=== PATIENT | female | born 1995 | race Caucasian/White ===

== ENCOUNTER 2022-08-22 04:00 | Inpatient (IN) | payer BC ==
[~2022-08-22] VITALS: Ht 165.5 cm; Wt 79.4 kg
[2022-08-22] VITALS (50 sets, daily range): BP systolic 97–152; BP diastolic 54–89
[2022-08-22] MEDS ORDERED: D5 LR IV SOLUTION 1,000 ML IV SCH (05:15)
[2022-08-22] MEDS ORDERED: LACTATED RINGERS 1,000 ML IV ONE (05:15)
[2022-08-22] MEDS ORDERED: MINERAL OIL 30 ML UDC TOP PRN (05:15)
[2022-08-22 05:23] LABS: BILIRUBIN,URINE NEGATIVE (NEGATIVE); CLARITY,URINE SL CLOUDY; COLOR,URINE YELLOW; GLUCOSE, URINE (UA) NEGATIVE (NEGATIVE); KETONES,URINE NEGATIVE (NEGATIVE); LEUKOCYTE ESTERASE ,URINE NEGATIVE (NEGATIVE); NITRITE,URINE NEGATIVE (NEGATIVE); PROTEIN,URINE NEGATIVE (NEGATIVE)
[2022-08-22 05:30] LABS: BASOPHILS % (AUTO) 0 % (0-10); EOSINOPHILS # (AUTO) 0.1 10^3/uL (0.0-0.3); EOSINOPHILS % (AUTO) 1 % (0-10); HEMATOCRIT 39 % (35-52); HEMOGLOBIN 13.5 g/dL (11.5-16.0); LYMPHOCYTES # (AUTO) 2.4 10^3/uL (1.0-4.0); LYMPHOCYTES % (AUTO) 17 % (12-44); MEAN CORPUSCULAR HEMOGLOBIN 33 pg (25-34); MEAN CORPUSCULAR HGB CONC 35 g/dL (32-36); MEAN CORPUSCULAR VOLUME 95 fL (80-99); MEAN PLATELET VOLUME 9.5 fL (9.0-12.2); MONOCYTES # (AUTO) 0.9 10^3/uL (0.0-1.0); MONOCYTES % (AUTO) 6 % (0-12); NEUTROPHILS # (AUTO) 10.6 10^3/uL (1.8-7.8); NEUTROPHILS % (AUTO) 75 % (42-75); PLATELET COUNT 253 10^3/uL (130-400); WHITE BLOOD COUNT 14.1 10^3/uL (4.3-11.0)
[2022-08-22 05:51] LABS: AMORPHOUS SEDIMENT,UR MOD AMOR URATES /LPF; BACTERIA,URINE NEGATIVE /HPF; SQUAMOUS EPITHELIAL CELL,UR 0-2 /HPF
[2022-08-22] MEDS ORDERED: CATHETER FLUSH 10 ML SYR IV SCH ×2 (06:00→14:00)
[2022-08-22] MEDS ORDERED: fentaNYL 2 mcg/ml BUPIVA 0.125 100 ML ONE (06:45)
[2022-08-22] MEDS ORDERED: fentaNYL INJ 100 MCG/2 ML AMP ONE (06:46)
[2022-08-22] MEDS ORDERED: BUPIVACAINE 0.25% 10 ML (SENSORCAINE) VIAL ONE (06:46)
--- NOTE | 2022-08-22 06:55 | History & Physical-OB ---
OB - Chief Complaint & HPI Date/Time Date of Admission: Date of Admission: Aug 22, 2022 at 05:12 Date seen by a Provider: Aug 22, 2022 Time Seen by a Provider: 08:45 Chief Complaint/History OB-Reason for Admission/Chief: Onset of Labor Hx : 1 Hx Para: 0 Expected Date of Delivery: Aug 18, 2022 Gestational Age in Weeks: 40 Gestational Age in Days: 4 History of Labs A+, antibody neg, RNI, HIV/HepB/RPR NR. GC/chlamydia neg. Glucola neg. GBS neg. Allergies and Home Medications Allergies Coded Allergies: No Known Drug Allergies (Unverified , 08/22/22) Patient Home Medication List Home Medication List Reviewed: Yes Pnv95/Ferrous Fumarate/FA ( Vitamin Tablet) 28 Mg Iron-800 Mcg Tablet, 1 EACH PO DAILY, (Reported) Entered as Reported by: RAUDEL PERALES on 08/22/22 0903 Last Action: New Order OB - History Hx of Present Care: Yes Ultrasounds: Normal mid trimester US Obstetrical Complications: None Information Induced Hypertension: No Maternal Gestational Diabetes: No Hemorrhage: No Patient Past Medical History PMHx: Denies SurgHx: Denies Social History/Family History Alcohol Use: Denies Use Recreational Drug Use: Yes (history of THC prior to ) Smoking Cessation: Never smoker Immunizations Influenza Vaccine Up-to-Date: Yes; Up-to-Date (04/13/22) Tetanus Booster (TDap): Less than 5yrs (06/21/22) Rubella: not immune RPR/VDRL: Negative GBS Status: Negative OB - Admission Exam Physical Exam Vitals: Vital Signs 08/22/22 04:11 Temp 36.9 Pulse 102 Resp 18 Pulse Ox 98 O2 Delivery Room Air HEENT: NCAT Extremities: Normal Cervical Dilatation: 6cm Effacement: Other (90) Station: -1 Membranes: Ruptured (AROM at time of exam with blood stained fluid return) Amniotic Fluid: Clear Heart Rate: 130's Accelerations: Accelerations Present Decelerations: No Decelerations Short Term Variability: Present Custodial Variability: Average (6-25) Contractions on Admission: < 5 Minutes Apart Labs Laboratory Tests Test 08/22/22 04:02 08/22/22 05:10 Range/Units Urine Color YELLOW Urine Clarity SL CLOUDY Urine pH 7.0 5-9 Urine Specific [place] 1.015 L 1.016-1.022 Urine Protein NEGATIVE NEGATIVE Urine Glucose (UA) NEGATIVE NEGATIVE Urine Ketones NEGATIVE NEGATIVE Urine Nitrite NEGATIVE NEGATIVE Urine Bilirubin NEGATIVE NEGATIVE Urine Urobilinogen 0.2 < = 1.0 MG/DL Urine Leukocyte Esterase NEGATIVE NEGATIVE Urine RBC (Auto) TRACE-I H NEGATIVE Urine RBC NONE /HPF Urine WBC NONE /HPF Urine Squamous Epithelial Cells 0-2 /HPF Urine Crystals PRESENT H /LPF Urine Amorphous Sediment MOD TIN URATES H /LPF Urine Bacteria NEGATIVE /HPF Urine Casts NONE /LPF Urine Mucus SMALL H /LPF Urine Culture Indicated NO White Blood Count 14.1 H 4.3-11.0 10^3/uL Red Blood Count 4.07 3.80-5.11 10^6/uL Hemoglobin 13.5 11.5-16.0 g/dL Hematocrit 39 35-52 % Mean Corpuscular Volume 95 80-99 fL Mean Corpuscular Hemoglobin 33 25-34 pg Mean Corpuscular Hemoglobin Concent 35 32-36 g/dL Red Cell Distribution Width 12.7 10.0-14.5 % Platelet Count 253 130-400 10^3/uL Mean Platelet Volume 9.5 9.0-12.2 fL Immature Granulocyte % (Auto) 1 % Neutrophils (%) (Auto) 75 42-75 % Lymphocytes (%) (Auto) 17 12-44 % Monocytes (%) (Auto) 6 0-12 % Eosinophils (%) (Auto) 1 0-10 % Basophils (%) (Auto) 0 0-10 % Neutrophils # (Auto) 10.6 H 1.8-7.8 10^3/uL Lymphocytes # (Auto) 2.4 1.0-4.0 10^3/uL Monocytes # (Auto) 0.9 0.0-1.0 10^3/uL Eosinophils # (Auto) 0.1 0.0-0.3 10^3/uL Basophils # (Auto) 0.0 0.0-0.1 10^3/uL Immature Granulocyte # (Auto) 0.1 0.0-0.1 10^3/uL OB - Assessment/Plan/Diagnosis Assessment Assessment: active labor Admission Dx Active labor 40 weeks gestation A+ GBS neg Rubella non-immune Admission Status: Inpatient Order (span 2 midnights) Reason for Inpatient Admission: Labor, delivery and course Plan Other Plan Progressing through labor spontaneously, discussed AROM versus continued expectant management and patient preferred AROM, done at time of exam. Anticipate vaginal delivery. RAUDEL PERALES MD Aug 22, 2022 06:55
[2022-08-22] MEDS ORDERED: diphenhydrAMINE 50 MG/ML INJ (BENADRYL) IV PRN (07:30)
[2022-08-22] MEDS ORDERED: NALOXONE 0.4 MG/ML 1 ML (NARCAN) VIAL IV PRN (07:30)
[2022-08-22] MEDS ORDERED: ONDANSETRON 4 MG/2 ML (SDV) Z0FRAN IV PRN (07:30)
[2022-08-22] MEDS ORDERED: LACTATED RINGERS 1,000 ML IV SCH (07:30)
[2022-08-22] MEDS ORDERED: fentaNYL 2 mcg/ml BUPIVA 0.125 100 ML EPI SCH (07:30)
[2022-08-22] MEDS ORDERED: PNV91TAB6 PO (09:03)
[2022-08-22] MEDS ORDERED: OXYTOCIN PRE-MIX DRIP 500 ML IV ONE ×2 (10:27→12:43)
[2022-08-22] MEDS ORDERED: BENZOCAINE/MENTHOL (DERMOPLAST) 56 ML CAN TP ONE (10:27)
[2022-08-22] MEDS ORDERED: LIDOCAINE/EPI 2% 1:200,00 (XYLOCAINE) 20 ML VIAL ONE (10:29)
[2022-08-22] MEDS: OXYTOCIN PRE-MIX DRIP 500 ML IV SCH ×2 (11:56→13:00)
--- NOTE | 2022-08-22 12:43 | OB Labor & Delivery Record ---
Vag Delivery Note Vag Delivery Note Date of Delivery: 08/22/22 Preoperative Diagnosis: Shayna Varner is a (26 /Para 1 / 0,Gestational Age (wks)40with 4 days Postoperative Diagnosis: Same Surgeon: RAUDEL PERALES Anesthesia: Epidural Delivery Type: Findings: Viable female infant, apgars 8/9, weight 8#4 Lacerations: second degree perineal, left periurethral Intact placenta with 3 vessel cord. Nuchal cord x 1 reduced, no body cord or shoulder dystocia Estimated Blood Loss: 400 ml Complications: None Condition: Stable Description of Procedure: The patient is a 26 year old female who presented in active labor. She was admitted and informed consent was obtained. Her labor course was unremarkable. She progressed to complete dilatation and began to push. She was then set up for delivery. The infant's head was delivered atraumatically in the JULIÁN position. The shoulders and remainder of the 's body were then delivered without difficulty. Upon delivery, the was vigorous and placed on maternal chest and the mouth and nares were bulb suctioned. After a delay cord was doubly clamped and cut and the infant remained on maternal chest. An intact placenta with 3-vessel cord delivered via Fiona and there was found to be minimal bleeding.~ Vigorous fundal massage was performed and the fundus was found to be firm. IV oxytocin was given. Examination of the vagina and perineum revealed a second degree and left periurethral lacerations repaired in the usual fashion with 3-0 vicryl rapide suture. Following the repair, sponge, instrument and needle counts were correct. Mom and baby were both in stable condition in the labor suite. Vitals - Labs Vital Signs - I&O Vital Signs Date Time Temp Pulse Resp B/P (MAP) Pulse Ox O2 Delivery O2 Flow Rate FiO2 08/22/22 07:16 95 20 109/67 (81) 98 Room Air 08/22/22 07:13 89 108/63 (78) Room Air 08/22/22 07:10 91 122/72 (89) 100 Room Air 08/22/22 07:07 97 119/72 (88) 08/22/22 07:04 94 124/76 (92) 98 Room Air 08/22/22 07:01 97 120/75 (90) 99 Room Air 08/22/22 06:58 117 116/75 (89) 08/22/22 06:55 95 18 117/71 (86) 100 Room Air 08/22/22 05:35 36.1 08/22/22 04:11 36.9 102 18 98 Room Air Labs Laboratory Tests 08/22/22 04:02: Urine Color YELLOW, Urine Clarity SL CLOUDY, Urine pH 7.0, Urine Specific [place] 1.015L, Urine Protein NEGATIVE, Urine Glucose (UA) NEGATIVE, Urine Ketones NEGATIVE, Urine Nitrite NEGATIVE, Urine Bilirubin NEGATIVE, Urine Urobilinogen 0.2, Urine Leukocyte Esterase NEGATIVE, Urine RBC (Auto) TRACE-IH, Urine RBC NONE, Urine WBC NONE, Urine Squamous Epithelial Cells 0-2, Urine Crystals PRESENTH, Urine Amorphous Sediment MOD TIN URATESH, Urine Bacteria NE GATIVE, Urine Casts NONE, Urine Mucus SMALLH, Urine Culture Indicated NO 08/22/22 05:10: White Blood Count 14.1H, Red Blood Count 4.07, Hemoglobin 13.5, Hematocrit 39, Mean Corpuscular Volume 95, Mean Corpuscular Hemoglobin 33, Mean Corpuscular Hemoglobin Concent 35, Red Cell Distribution Width 12.7, Platelet Count 253, Mean Platelet Volume 9.5, Immature Granulocyte % (Auto) 1, Neutrophils (%) (Auto) 75, Lymphocytes (%) (Auto) 17, Monocytes (%) (Auto) 6, Eosinophils (%) (Auto) 1, Basophils (%) (Auto) 0, Neutrophils # (Auto) 10.6H, Lymphocytes # (Auto) 2.4, Monocytes # (Auto) 0.9, Eosinophils # (Auto) 0.1, Basophils # (Auto) 0.0, Immature Granulocyte # (Auto) 0.1 RAUDEL PERALES MD Aug 22, 2022 12:43
[2022-08-22] MEDS ORDERED: WITCH HAZEL(TUCKS) 40 EA JAR TOP PRN (12:45)
[2022-08-22] MEDS ORDERED: BENZOCAINE/MENTHOL (DERMOPLAST) 56 ML CAN TP PRN (12:45)
[2022-08-22] MEDS ORDERED: ACETAMINOPHEN 500 MG TAB (TYLENOL) PO PRN (12:45)
[2022-08-22] MEDS ORDERED: LIDOCAINE/EPI 2% 1:200,00 (XYLOCAINE) 10 ML VIAL INJ ONE (14:00)
[2022-08-22] MEDS: IBUPROFEN 600 MG (MOTRIN) TAB PO SCH ×2 (16:31→22:22)
[2022-08-22] MEDS: DOCUSATE SODIUM 100 MG (COLACE) CAP PO SCH (21:46)
[2022-08-23] MEDS: IBUPROFEN 600 MG (MOTRIN) TAB PO SCH (04:22)
[2022-08-23 04:28] VITALS: BP 112/76
[2022-08-23 06:00] LABS: BASOPHILS % (AUTO) 0 % (0-10); EOSINOPHILS # (AUTO) 0.1 10^3/uL (0.0-0.3); EOSINOPHILS % (AUTO) 1 % (0-10); HEMATOCRIT 31 % (35-52); HEMOGLOBIN 10.6 g/dL (11.5-16.0); LYMPHOCYTES # (AUTO) 2.8 10^3/uL (1.0-4.0); LYMPHOCYTES % (AUTO) 20 % (12-44); MEAN CORPUSCULAR HEMOGLOBIN 33 pg (25-34); MEAN CORPUSCULAR HGB CONC 35 g/dL (32-36); MEAN CORPUSCULAR VOLUME 96 fL (80-99); MEAN PLATELET VOLUME 9.8 fL (9.0-12.2); MONOCYTES # (AUTO) 0.9 10^3/uL (0.0-1.0); MONOCYTES % (AUTO) 6 % (0-12); NEUTROPHILS # (AUTO) 9.9 10^3/uL (1.8-7.8); NEUTROPHILS % (AUTO) 72 % (42-75); PLATELET COUNT 242 10^3/uL (130-400); WHITE BLOOD COUNT 13.8 10^3/uL (4.3-11.0)
[2022-08-23] MEDS ORDERED: PRENATAL VITAMIN 1 EA TAB PO SCH (07:00)
[2022-08-23] MEDS ORDERED: IBUP-844 PO (07:22)
[2022-08-23] MEDS ORDERED: DOCU100C37 PO (07:22)
[2022-08-23] MEDS ORDERED: FERR325T5 PO (07:22)
[2022-08-23 07:48] VITALS: BP 107/66
--- NOTE | 2022-08-23 08:51 | Anesthesia-Regional Post-Op ---
Regional Patient Condition Mental Status: Alert, Oriented x3 Circulation: Same as Pre-Op Headache: Absent Sensation: Full Recovery Motor Block: Absent Post Op Complications Complications None Follow Up Care/Instructions Patient Instructions None needed. Anesthesia/Patient Condition Patient is doing well, no complaints, stable vital signs, no apparent adverse anesthesia problems. No complications reported per nursing. D/C home per [facility] [place] Criteria: Yes RHIANNON PENALOZA CRNA Aug 23, 2022 08:51
[2022-08-23] MEDS ORDERED: MEASLES,MUMPS,RUBELLA 1 EA INJ SC ONE (09:00)
[2022-08-23] MEDS: DOCUSATE SODIUM 100 MG (COLACE) CAP PO SCH (09:50)
[2022-08-23 09:51] VITALS: BP 112/69
--- NOTE | 2022-08-23 09:52 | Postpartum Progress Note ---
Note Note Day # [] Subjective: Patient is without complaints. Ambulating, voiding. Tolerating a regular diet without nausea or vomiting. Normal lochia. Pain is well controlled with oral pain medications. [] feeding. [] Objective: [] Physical Exam: General - Alert and oriented, no apparent distress Abdomen - Soft, appropriately tender to palpation, non-distended, fundus firm at umbilicus Extremities - no edema, negative Benji's bilaterally Assessment: [] post- day # [], status post [] vaginal delivery. Recovering well, hemodynamically stable Plan: Routine care. Encourage breast feeding. Encourage ambulation. Ferrous sulfate supplementation. Plan for discharge [] Vitals - Labs Vital Signs - I&O Vital Signs Date Time Temp Pulse Resp B/P (MAP) Pulse Ox O2 Delivery O2 Flow Rate FiO2 08/23/22 09:51 36.7 84 16 112/69 (83) 97 Room Air 08/23/22 07:48 36.9 104 16 107/66 (80) 98 Room Air 08/23/22 04:28 36.7 94 16 112/76 (88) 99 Room Air 08/22/22 20:45 36.7 95 18 108/61 (77) 99 Room Air 08/22/22 16:33 36.8 91 20 115/78 (90) 100 Room Air 08/22/22 14:34 90 20 110/65 (80) Room Air 08/22/22 14:19 112 20 105/61 (76) Room Air 08/22/22 14:04 93 20 99/57 (71) Room Air 08/22/22 13:49 86 20 106/60 (75) Room Air 08/22/22 13:34 91 20 97/54 (68) Room Air 08/22/22 13:19 86 20 100/65 (77) Room Air 08/22/22 13:04 104 20 106/70 (82) Room Air 08/22/22 12:49 96 20 101/61 (74) Room Air 08/22/22 12:30 107 20 110/55 (73) Room Air 08/22/22 12:21 94 20 146/60 (88) Room Air 08/22/22 12:20 94 20 146/60 (88) 100 Room Air 08/22/22 12:15 93 20 131/66 (87) 100 Room Air 08/22/22 12:00 101 20 131/71 (91) 100 Room Air 08/22/22 11:45 78 20 100 Non Rebreather 10.00 08/22/22 11:30 93 20 152/65 (94) 99 Non Rebreather 10.00 08/22/22 11:15 87 20 99 Room Air 08/22/22 11:00 88 20 129/78 (95) 96 Room Air 08/22/22 10:45 82 20 126/79 (95) 98 Room Air 08/22/22 10:30 86 20 112/79 (90) 98 Room Air 08/22/22 10:15 95 20 125/89 (101) 100 Room Air 08/22/22 10:00 93 20 116/73 (87) 100 Room Air I & O 08/23/22 07:00 Intake Total 3060 ml Balance 3060 ml Labs Laboratory Tests 08/23/22 05:02: White Blood Count 13.8H, Red Blood Count 3.21L, Hemoglobin 10.6#L, Hematocrit 31L, Mean Corpuscular Volume 96, Mean Corpuscular Hemoglobin 33, Mean Corpuscular Hemoglobin Concent 35, Red Cell Distribution Width 12.9, Platelet Count 242, Mean Platelet Volume 9.8, Immature Granulocyte % (Auto) 1, Neutrophils (%) (Auto) 72, Lymphocytes (%) (Auto) 20, Monocytes (%) (Auto) 6, Eosinophils (%) (Auto) 1, Basophils (%) (Auto) 0, Neutrophils # (Auto) 9.9H, Lymphocytes # (Auto) 2.8, Monocytes # (Auto) 0.9, Eosinophils # (Auto) 0.1, Basophils # (Auto) 0.0, Immature Granulocyte # (Auto) 0.1 RAUDEL PERALES MD Aug 23, 2022 09:52
[2022-08-23] MEDS ORDERED: IBUPROFEN 600 MG (MOTRIN) TAB PO SCH (10:00)
[2022-08-23 11:51] VITALS: BP 116/58
[2022-08-23] MEDS ORDERED: MEASLES,MUMPS,RUBELLA 1 EA INJ ONE (14:59)
[2022-08-23 15:36] VITALS: BP 116/58
--- NOTE | 2022-08-23 16:59 | Discharge Summary ---
Discharge Summary Hospital Course Hospital Course Date of Admission: Aug 22, 2022 at 05:12 Admission Diagnosis : Family Physician/Provider: Date of Discharge: 08/23/22 Discharge Diagnosis: s/p spontaneous vaginal delivery with second degree perineal laceration repair Asymptomatic acute blood loss anemia Hospital Course: 26 yo G1 now P1 admitted in active labor at 40w4d, had uncomplicated with second degree perineal lac and left periurethral lac repair. uncomplicated, started iron for mild asymptomatic anemia. Labs and Pending Lab Test: Laboratory Tests 08/23/22 05:02: White Blood Count 13.8H, Red Blood Count 3.21L, Hemoglobin 10.6#L, Hematocrit 31L, Mean Corpuscular Volume 96, Mean Corpuscular Hemoglobin 33, Mean Corpuscular Hemoglobin Concent 35, Red Cell Distribution Width 12.9, Platelet Count 242, Mean Platelet Volume 9.8, Immature Granulocyte % (Auto) 1, Neutrophils (%) (Auto) 72, Lymphocytes (%) (Auto) 20, Monocytes (%) (Auto) 6, Eosinophils (%) (Auto) 1, Basophils (%) (Auto) 0, Neutrophils # (Auto) 9.9H, Lymphocytes # (Auto) 2.8, Monocytes # (Auto) 0.9, Eosinophils # (Auto) 0.1, Basophils # (Auto) 0.0, Immature Granulocyte # (Auto) 0.1 Home Meds Active Ferrous Sulfate 325 Mg (65 Mg Iron) Tablet.dr 325 Mg PO DAILY Docusate Sodium 100 Mg Capsule 100 Mg PO BID Ibu (Ibuprofen) 600 Mg Tablet 600 Mg PO Q6H Reported Vitamin Tablet (Pnv95/Ferrous Fumarate/FA) 28 Mg Iron-800 Mcg Tablet 1 Each PO DAILY Assessment/Pt DC Instructions Follow up with Dr. Balbuena in 6 weeks. Discharge Diet: No Restrictions Activity as Tolerated: Yes (avoid strenuous activity x 6 weeks) Discharge Physical Examination Allergies: Coded Allergies: No Known Drug Allergies (Unverified , 08/22/22) General Appearance: No Apparent Distress Respiratory: Lungs Clear, Normal Breath Sounds Cardiovascular: Regular Rate, Rhythm, No Murmur Extremity: No Pedal Edema Skin: Normal Color, Warm/Dry Neurologic/Psychiatric: Alert, Normal Mood/Affect RAUDEL BALBUENA MD Aug 23, 2022 16:59
[2022-08-24] MEDS ORDERED: FERROUS SULF 325 MG (IRON) TAB PO SCH (07:00)
== END 2022-08-23 16:30 | disposition home or self-care (01) | DRG 806 ==
LOC: WSo 04:00 → LDRP 04:00 → WSo 05:11 → LDRP 05:12
PROVIDERS: ADMIT Family Medicine; ATTEND Family Medicine
PROC: 10E0XZZ Delivery of Products of Conception, External Approach (ICD-10-PCS; principal; 2022-08-22)
PROC: 0KQM0ZZ Repair Perineum Muscle, Open Approach (ICD-10-PCS; 2022-08-22)
PROC: 0UQMXZZ Repair Vulva, External Approach (ICD-10-PCS; 2022-08-22)
DX: O48.0 Post-term pregnancy (principal); D62 Acute posthemorrhagic anemia; Z37.0 Single live birth; O70.1 Second degree perineal laceration during delivery; O71.82 Other specified trauma to perineum and vulva; Z3A.40 40 weeks gestation of pregnancy; O69.81X0 Labor and delivery complicated by cord around neck, without compression, not applicable or unspecified; O90.81 Anemia of the puerperium
CPT/HCPCS: 36415; 81000; 85025; 86780; 86850; 86900; 86901; 90707; 99213